=== PATIENT | male | born 1945 | race Caucasian/White ===

== ENCOUNTER 2018-04-08 21:58 | Emergency (ER) | payer MEDICARE, OTHER ==
[2018-04-09 00:18] LABS: CHLORIDE,CL 104 mmol/L (101-111); SODIUM,NA 136 mmol/L (135-145)
--- NOTE | 2018-04-09 00:37 | EDM.PDOC ---
ED HPI GENERAL MEDICAL PROBLEM - General Chief Complaint: Cardiovascular Problem Stated Complaint: BP HIGH [id number] Time Seen by Provider: 04/08/18 23:30 Source of Information: Reports: Patient, Family, RN, RN Notes Reviewed History Limitations: Reports: No Limitations - History of Present Illness INITIAL COMMENTS - FREE TEXT/NARRATIVE: Pt presents to the ER with c/o dull headaches for the past 2 months. He states that he has been having issues with hypertension. Patient states that he has been doctoring in [place] as well as with TORIBIO Osullivan. He states he is scheduled to have an MRI as well as a carotid ultrasound. Patient states he has been checking his blood pressures at home and they have been running quite high. Katya Moran has recently increased his BP medications. He has also seen optometry. Patient states that about 2 months ago in [place], he hit his head on a golf cart which "dropped him to his knees". He states he thinks his headaches may have begun at that time as well, but he is unsure. Patient denies any further symptoms. Onset: Gradual Head Pain Score (Numeric/FACES): 1 Past Medical History Cardiovascular History: Reports: High Cholesterol, Hypertension Musculoskeletal History: Reports: Gout Social & Family History - Family History Family Medical History: Noncontributory - Tobacco Use Smoking Status *Q: Never Smoker Second Hand Smoke Exposure: Yes - Caffeine Use Caffeine Use: Reports: Tea - Recreational Drug Use Recreational Drug Use: No ED ROS GENERAL - Review of Systems Review Of Systems: ROS reveals no pertinent complaints other than HPI. ED EXAM, GENERAL - Physical Exam Exam: See Below Exam Limited By: No Limitations General Appearance: Alert, WD/WN, No Apparent Distress Eye Exam: Bilateral Eye: EOMI, Normal Inspection Ears: Normal External Exam, Hearing Grossly Normal Nose: Normal Inspection Throat/Mouth: Normal Inspection, Normal Voice, No Airway Compromise Head: Atraumatic, Normocephalic Neck: Normal Inspection, Supple, Non-Tender, Full Range of Motion Respiratory/Chest: No Respiratory Distress, Lungs Clear, Normal Breath Sounds, No Accessory Muscle Use, Chest Non-Tender Cardiovascular: Normal Peripheral Pulses, No Gallop, No JVD, No Murmur, No Rub, Irregularly Irregular. No: No Edema (+1-2 edema) Peripheral Pulses: 2+: Radial (L), Radial (R), Dorsalis Pedis (L), Dorsalis Pedis (R) GI/Abdominal: Normal Bowel Sounds, Soft, Non-Tender (Male) Exam: Deferred Rectal (Males) Exam: Deferred Back Exam: Normal Inspection, Decreased Range of Motion Extremities: Normal Inspection, Normal Range of Motion, Non-Tender, Normal Capillary Refill, Pedal Edema (+1-2 ankle/pedal) Neurological: Alert, Oriented, Normal Cognition, Normal Gait, Normal Reflexes, No Motor/Sensory Deficits Psychiatric: Normal Affect, Normal Mood Skin Exam: Warm, Dry, Intact, Normal Color, No Rash Lymphatic: No Adenopathy Course - Vital Signs Last Recorded V/S: Last Vital Signs Temp 97.9 F 04/08/18 22:11 Pulse 68 04/08/18 22:11 Resp 17 04/08/18 22:11 BP 176/94 H 04/08/18 22:11 Pulse Ox 98 04/08/18 22:11 - Orders/Labs/Meds Labs: Laboratory Tests 04/08/18 04/08/18 Range/Units 23:50 23:50 WBC 9.1 (5.0-10.0) 10^3/uL RBC 5.53 (4.6-6.2) 10^6/uL Hgb 16.2 (14.0-18.0) g/dL Hct 47.9 (40.0-54.0) % MCV 86.6 (80-100) fL MCH 29.3 (27.0-34.0) pg MCHC 33.8 (33.0-35.0) g/dL Plt Count 221 (150-450) 10^3/uL Neut % (Auto) 64.2 (42.2-75.2) % Lymph % (Auto) 17.0 L (20.5-50.1) % [place] % (Auto) 14.2 H (2-8) % Eos % (Auto) 4.4 H (1.0-3.0) % Baso % (Auto) 0.2 (0.0-1.0) % Sodium 136 (135-145) mmol/L Potassium 3.5 L (3.6-5.0) mmol/L Chloride 104 (101-111) mmol/L Carbon Dioxide 26.0 (21.0-31.0) mmol/L Anion Gap 9.5 BUN 22 H (7-18) mg/dL Creatinine 1.0 (0.6-1.3) mg/dL Est Cr Clr Drug Dosing 65.79 mL/min Estimated GFR (MDRD) > 60 BUN/Creatinine Ratio 22.00 Glucose 93 (74-105) mg/dL Calcium 8.6 (8.4-10.2) mg/dl Total Bilirubin 0.7 (0.2-1.0) mg/dL AST 21 (10-42) IU/L ALT 21 (10-60) IU/L Alkaline Phosphatase 66 (42-121) IU/L B-Natriuretic Peptide 15 (0-100) pg/ml Total Protein 6.6 L (6.7-8.2) g/dl Albumin 3.6 (3.2-5.5) g/dl Globulin 3.0 Albumin/Globulin Ratio 1.20 - Radiology Interpretation Free Text/Narrative:: Head CT without contrast: IMPRESSION: 10 mm lucency medial temporal lobe most likely representing prominent perivascular space versus small lacunar infarct Non-emergent MRI of the brain is suggested Dictated and Authenticated by: Adiel Soto MD 04/09/2018 12:25 AM Central Time ([place] & [place]) Chest xray: FINDINGS: Lungs: Unremarkable. No consolidation. Pleural space: Unremarkable. No pneumothorax. Heart: Mild cardiomegaly Mediastinum: Unremarkable. Bones/joints: Unremarkable. IMPRESSION: No acute findings. Thank you for allowing us to participate in the care of your patient. Dictated and Authenticated by: Adiel Soto MD 04/09/2018 12:23 AM Central Time ([place] & [place]) See Rad report Departure - Departure Time of Disposition: 00:37 Disposition: Home, Self-Care 01 Condition: Fair Clinical Impression: Hypertensive heart disease Qualifiers: Heart failure presence: unspecified whether heart failure present Qualified Code(s): I11.9 - Hypertensive heart disease without heart failure Headache Qualifiers: Headache type: unspecified Headache chronicity pattern: chronic headache Intractability: intractable Qualified Code(s): R51 - Headache Instructions: How to Take Your Blood Pressure, Hrip-[id number], DASH Eating Plan, Hypertension, [id number], General Headache Without Cause, Geob-zy-[id number] Referrals: Katya Moran [employer] [Primary Care Provider] - Forms: ED Department Discharge Additional Instructions: Continue to monitor and log your blood pressures Follow the DASH diet Take your medications as prescribed Follow up with your primary care facility on Wednesday
== END 2018-04-09 00:57 | disposition home or self-care (01) ==
LOC: DL.ED 21:58
DX: I11.9 Hypertensive heart disease without heart failure (principal); R51 Headache; E78.00 Pure hypercholesterolemia, unspecified; I10 Essential (primary) hypertension
CPT/HCPCS: 36415; 70450; 71045; 80053; 83880; 85025; 93005; 93010; 99284

== ENCOUNTER 2018-05-16 17:28 | Emergency (ER) | payer MEDICARE, OTHER ==
--- NOTE | 2018-05-16 20:36 | EDM.PDOC ---
ED HPI GENERAL MEDICAL PROBLEM - General Chief Complaint: Cardiovascular Problem Stated Complaint: [id number] BP ALL OVER THE PLACE Time Seen by Provider: 05/16/18 20:36 Source of Information: Reports: Patient, Family History Limitations: Reports: No Limitations - History of Present Illness INITIAL COMMENTS - FREE TEXT/NARRATIVE: Blood pressure high , has been having headaches for 2 months, meds changed one month ago and helped for week but BP coming up. CLANCY frontal. less now, seems to increase when BP up. Has not followed up with primary. Headache Pain Score (Numeric/FACES): 1 - Related Data Allergies Allergy/AdvReac Type Severity Reaction Status Date / Time No Known Allergies Allergy Verified 05/16/18 18:29 Home Meds: Home Meds Fluticasone Furoate [Arnuity Ellipta] 2 puff PRASHANTH DAILY 05/16/18 [History] Magnesium Oxide [Magnesium] 500 mg PO DAILY 05/16/18 [History] Multivitamin [One Daily] 1 tab PO DAILY 05/16/18 [History] Olmesartan/Hydrochlorothiazide [Olmesartan-Hctz 20-12.5 mg Tab] 1 tab PO DAILY 05/16/18 [History] [place]-3/DHA/Epa/Fish Oil [Fish Oil 1,400 MG Softgel] 1,400 mg PO DAILY 05/16/18 [History] Past Medical History HEENT History: Reports: Hard of Hearing, Impaired Vision Cardiovascular History: Reports: High Cholesterol, Hypertension Musculoskeletal History: Reports: Gout Social & Family History - Family History Family Medical History: Noncontributory - Tobacco Use Smoking Status *Q: Unknown Ever Smoked - Caffeine Use Caffeine Use: Reports: None - Recreational Drug Use Recreational Drug Use: No ED ROS GENERAL - Review of Systems Review Of Systems: See Below Constitutional: Reports: No Symptoms HEENT: Reports: Glasses. Denies: Vision Change Respiratory: Denies: No Symptoms, Cough Cardiovascular: Reports: Blood Pressure Problem. Denies: Chest Pain, Edema, Palpitations GI/Abdominal: Reports: No Symptoms Musculoskeletal: Reports: No Symptoms Skin: Reports: No Symptoms Neurological: Reports: Headache. Denies: Seizure, Syncope, Tingling, Trouble Speaking ED EXAM, GENERAL - Physical Exam Exam: See Below Exam Limited By: No Limitations General Appearance: Alert, No Apparent Distress, Obese Eye Exam: Bilateral Eye: EOMI Ears: Normal External Exam, Normal TMs Nose: Normal Inspection Throat/Mouth: Normal Inspection Head: Atraumatic, Normocephalic Neck: Normal Inspection, Full Range of Motion Respiratory/Chest: No Respiratory Distress, Lungs Clear, Normal Breath Sounds Cardiovascular: Normal Peripheral Pulses, Regular Rate, Rhythm GI/Abdominal: Normal Bowel Sounds Back Exam: Normal Inspection, Full Range of Motion Extremities: Normal Inspection, Normal Range of Motion Neurological: Alert, Oriented, Normal Cognition Psychiatric: Anxious Skin Exam: Warm, Dry, Intact, Normal Color EKG INTERPRETATION Rhythm: NSR Course - Vital Signs Last Recorded V/S: Last Vital Signs Temp 98.1 F 05/16/18 19:55 Pulse 76 05/16/18 21:56 Resp 18 05/16/18 19:55 BP 143/86 H 05/16/18 21:56 Pulse Ox 96 05/16/18 19:55 - Orders/Labs/Meds Orders: Active Orders 24 hr Category Date Time Status EKG 12 Lead [EKG Documentation Completion] [RC] URGENT Care 05/16/18 20:52 Active Labs: Laboratory Tests 05/16/18 05/16/18 Range/Units 21:02 21:02 WBC 10.5 H (5.0-10.0) 10^3/uL RBC 5.96 (4.6-6.2) 10^6/uL Hgb 17.9 D (14.0-18.0) g/dL Hct 51.8 (40.0-54.0) % MCV 86.9 (80-100) fL MCH 30.0 (27.0-34.0) pg MCHC 34.6 (33.0-35.0) g/dL Plt Count 242 (150-450) 10^3/uL Neut % (Auto) 72.0 (42.2-75.2) % Lymph % (Auto) 16.5 L (20.5-50.1) % [place] % (Auto) 9.3 H (2-8) % Eos % (Auto) 1.9 (1.0-3.0) % Baso % (Auto) 0.3 (0.0-1.0) % Sodium 138 (135-145) mmol/L Potassium 3.9 (3.6-5.0) mmol/L Chloride 100 L (101-111) mmol/L Carbon Dioxide 29.0 (21.0-31.0) mmol/L Anion Gap 12.9 BUN 15 (7-18) mg/dL Creatinine 1.2 (0.6-1.3) mg/dL Est Cr Clr Drug Dosing 54.83 mL/min Estimated GFR (MDRD) 59 BUN/Creatinine Ratio 12.50 Glucose 91 (74-105) mg/dL Calcium 9.2 (8.4-10.2) mg/dl Total Bilirubin 0.9 (0.2-1.0) mg/dL AST 28 (10-42) IU/L ALT 29 (10-60) IU/L Alkaline Phosphatase 70 (42-121) IU/L Total Protein 7.7 (6.7-8.2) g/dl Albumin 4.2 (3.2-5.5) g/dl Globulin 3.5 Albumin/Globulin Ratio 1.20 Meds: Medications Discontinued Medications Generic Name Dose Route Start Last Admin Trade Name Freq PRN Reason Stop Dose Admin Metoprolol Tartrate 12.5 mg 05/16/18 21:32 05/16/18 21:56 Lopressor PO 05/16/18 21:33 12.5 mg ONETIME ONE Administration Departure - Departure Time of Disposition: 21:47 Disposition: Home, Self-Care 01 Condition: Good Clinical Impression: Hypertension Qualifiers: Hypertension type: essential hypertension Qualified Code(s): I10 - Essential ( primary) hypertension Instructions: Hypertension, [id number] Referrals: Katya Moran NP [Primary Care Provider] - Forms: ED Department Discharge Additional Instructions: metoprolol 12.5mg twice daily #4 follow up with primary care this week limit salt and sodium in diet - My Orders Last 24 Hours: My Active Orders 05/16/18 20:52 EKG 12 Lead [EKG Documentation Completion] [RC] URGENT - Assessment/Plan Last 24 Hours: My Active Orders 05/16/18 20:52 EKG 12 Lead [EKG Documentation Completion] [RC] URGENT
[2018-05-16] MEDS ORDERED: Metoprolol Tartrate 25 MG Tab PO ONE (21:32)
--- NOTE | 2018-05-18 11:36 | EKG ---
05/16/2018- JAK[facility]WIN [facility] - FINDINGS: EKG, per my reading, shows sinus rhythm with a right bundle-branch block. [facility] /[id number]
== END 2018-05-16 21:59 | disposition home or self-care (01) ==
LOC: DL.ED 17:28
DX: I10 Essential (primary) hypertension (principal); E78.00 Pure hypercholesterolemia, unspecified; Z79.899 Other long term (current) drug therapy
CPT/HCPCS: 36415; 80053; 85025; 93005; 93010; 99283; A9270